=== PATIENT | male | born 1995 | race Caucasian/White ===

== ENCOUNTER 2016-06-24 02:26 | Emergency (ER) | payer OTHER ==
[2016-06-24] MEDS ORDERED: ONDANSETRON DISINTEGRATING 4 MG TAB PO ONE (02:37)
[2016-06-24 03:30] VITALS: RESP 16
--- NOTE | 2016-06-24 03:37 | EDPHY ---
H & P Stated Complaint: ETOH - Personal History Current Tetanus/Diphtheria Vaccine: Yes Current Tetanus Diphtheria and Acellular Pertussis (TDAP): Yes - Medical/Surgical History Hx Asthma: No Hx Chronic Respiratory Disease: No Hx Diabetes: No Hx Cardiac Disease: No Hx Renal Disease: No Hx Cirrhosis: No Hx Alcoholism: No Hx HIV/AIDS: No Hx Splenectomy or Spleen Trauma: No Other PMH: R arm fx, - Social History Smoking Status: Never smoked Time Seen by Provider: 06/24/16 03:17 HPI/ROS: Chief complaint: Alcohol intoxication History of present illness: This is a 20-year-old male who presents to the emergency department for alcohol intoxication. Patient was found intoxicated earlier this evening and brought to the emergency department by EMS. On my evaluation patient is intoxicated. He is nauseated. He denies further complaints but it is difficult to have a conversation with him given his level of intoxication. Review of systems: Unable to obtain given level of intoxication (Mikel Marie) - Physical Exam Exam: General Appearance: Alert, heavy odor of alcohol on breath ENT: No hemotympanum, no killian sign, no raccoon eyes Eyes: PERRLA Respiratory: Lungs clear to auscultation bilaterally Cardiac: Regular rate and rhythm. Gastrointestinal: Bowel sounds normal. Abdomen soft, nondistended, nontender. Neurological: Patient is alert. Strength and sensation intact and symmetrical. Skin: Head-to-toe examination does not reveal lesions consistent with trauma. Musculoskeletal: No apparent tenderness on palpation of the head, no bony deformity. The spine is without apparent tenderness, no crepitus, bony deformity or step-off. Chest wall is intact palpation without crepitus or subcutaneous air. Patient moving all extremities well. (Mikel Marie) Constitutional: Initial Vital Signs Heart Rate 96 06/24/16 02:30 Respiratory Rate 36 H 06/24/16 02:30 Blood Pressure 92/59 L 06/24/16 02:30 O2 Delivery Mode Room Air Allergies/Adverse Reactions: No Known Allergies Allergy (Unverified 06/24/16 02:29) Home Medications: Medication Instructions Recorded NK [No Known Home Meds] 06/24/16 Medical Decision Making ED Course/Re-evaluation: Patient seen under the supervision of my secondary supervising physician Dr. Rachel Velasquez. Patient presents to the emergency department with EMS after being found intoxicated. He is nontoxic. Vital signs are stable. Physical exam is benign. He is observed in the emergency room while he odilia up and remains well appearing. He has no complaints as he odilia up. He is discharged with a sober friend. (Mikel Marie) Differential Diagnosis: Included but not limited to alcohol intoxication alcohol withdrawal, polysubstance abuse (Mikel Marie) Other Provider: PHYSICIAN DOCUMENTATION: The patient was evaluated and managed by the Physician Visual Artist. My co- signature indicates that I have reviewed this chart and I agree with the findings and plan of care as documented. I am the secondary supervising physician. (Rachel Velasquez) - Data Points Medications Given: Discontinued Medications Ondansetron HCl (Zofran Odt) 4 mg PO EDNOW ONE Stop: 06/24/16 02:38 Last Admin: 06/24/16 02:38 Dose: 4 mg Departure - Departure Disposition: Home, Routine, Self-Care Clinical Impression: Alcoholic intoxication Condition: Good Instructions: Alcohol Intoxication (ED) Additional Instructions: Follow-up with primary care doctor on Sunday for recheck Drink plenty of fluids to stay hydrated Do not drink alcohol If symptoms worsen or new symptoms develop return to the emergency department for recheck Referrals: Patient,NotPresent [Unknown] - As per Instructions Alex Barajas MD [Medical Doctor] - As per Instructions
[2016-06-24 05:43] VITALS: BP 137/67; PULSE 90; TEMP 97.9; O2SAT 97
== END 2016-06-24 05:58 | disposition home or self-care (01) ==
DX: F10.129 Alcohol abuse with intoxication, unspecified (principal)